=== PATIENT | male | born 1985 | race Two or more races ===

== ENCOUNTER 2023-06-30 23:08 | Emergency (ER) | payer BC, MEDICAID ==
[~2023-06-30] VITALS: Ht 167.6 cm; Wt 68.9 kg
[2023-07-01 00:09] VITALS: O2SAT 96
[2023-07-01] MEDS ORDERED: DexAMETHasone SOD PHOS 10MG/1ML VIAL INJ IM ONE (02:15)
[2023-07-01] MEDS ORDERED: MORPHINE SULFATE INJ 2 MG/ml SYRG IM ONE (02:15)
[2023-07-01 02:21] VITALS: BP 117/72; PULSE 74; RESP 16
[2023-07-01] MEDS ORDERED: KETOROLAC TROMETH 60MG/2ML VIAL IM ONE (03:15)
[2023-07-01] MEDS ORDERED: CYCL-611 PO (03:15)
[2023-07-01] MEDS ORDERED: HYDR-4902 PO (03:15)
[2023-07-01] MEDS ORDERED: IBUP1TAB5 PO (03:15)
== END 2023-07-01 03:25 | disposition home or self-care (01) ==
LOC: ER 23:08
DX: S43.401A Unspecified sprain of right shoulder joint, initial encounter (principal); M54.2 Cervicalgia; X58.XXXA Exposure to other specified factors, initial encounter; Y93.89 Activity, other specified; Y92.89 Other specified places as the place of occurrence of the external cause; Y99.8 Other external cause status
CPT/HCPCS: 72040; 73030; 96372; 99284; J1100; J1885; J2270

== ENCOUNTER 2024-05-06 10:54 | Emergency (ER) | payer BC ==
[~2024-05-06] VITALS: Ht 167.6 cm; Wt 65.9 kg
[~2024-05-06 10:54] MED LIST: CYCL-611 PO; HYDR-4902 PO; IBUP1TAB5 PO
[2024-05-06 12:50] VITALS: BP 120/81; PULSE 81; RESP 16; TEMP 98.6; O2SAT 97
[2024-05-06] MEDS ORDERED: HYDR-4902 PO (13:15)
[2024-05-06] MEDS: KETOROLAC TROMETH 30 MG/ML 1ML VIAL IM ONE (13:27)
== END 2024-05-06 13:20 | disposition home or self-care (01) ==
LOC: ER 11:00
DX: S62.300A Unspecified fracture of second metacarpal bone, right hand, initial encounter for closed fracture (principal); S62.302A Unspecified fracture of third metacarpal bone, right hand, initial encounter for closed fracture; Z79.891 Long term (current) use of opiate analgesic; Z79.1 Long term (current) use of non-steroidal anti-inflammatories (NSAID); Y04.2XXA Assault by strike against or bumped into by another person, initial encounter; Y93.89 Activity, other specified; Y92.89 Other specified places as the place of occurrence of the external cause; Y99.8 Other external cause status
CPT/HCPCS: 29125; 73130; 96372; 99283; J1885